=== PATIENT | male | born 2000 | race Caucasian/White ===

== ENCOUNTER 2024-06-10 08:41 | Day surgery (SDC) | payer MEDICAID, SELFPAY ==
[2024-06-10] VITALS (8 sets, daily range): BP systolic 102–128; BP diastolic 60–86; PULSE 60–73; RESP 16; TEMP 36.6–36.8; O2SAT 95–100; BMI 19.6
[2024-06-10] MEDS: CEFAZOLIN 2 GM in 0.9 % SODIUM CHLORIDE Mini-bag 100 ML IVPB (08:52)
--- NOTE | 2024-06-10 09:10 | W.PM.H&PU ---
History & Physical Update History & Physical Update H&P Reviewed and patient assessed: No changes noted
[2024-06-10] MEDS: SODIUM CHLORIDE 0.9 % (FLUSH) 10 ML SYRINGE IVF (09:57)
[2024-06-10] MEDS: MIDAZOLAM HCL 1 MG/ML inj IVP (09:57)
[2024-06-10] MEDS: fentaNYL 100 MCG/2 ML inj IVP (09:57)
--- NOTE | 2024-06-10 09:59 | SUR.PREOP ---
TIME?OUT:?0956 PT/Sophia Smith RN/Dr. Valentino MDA?VERIFICATION?OF?SURGICAL?SITE right hand,?PROCEDURE,?AND?CONSENT OBTAINED?PRIOR?TO?INVASIVE?PROCEDURE.
--- NOTE | 2024-06-10 10:40 | CRLHL7_ITS ---
For Patients: As a result of the Cures Act, medical imaging exams and procedure reports are released immediately into your electronic medical record. You may view this report before your referring provider. If you have questions, please contact your health care provider. Indication: Intra op right hand Technique: Three fluoroscopic images of the right hand. Fluoroscopic time of 58.5 seconds. IMPRESSION: Fluoroscopic guidance for fixation across the fracture involving the 3rd metacarpal. Dictated by Gian Blevins MD @ 06/10/2024 12:12:46 PM (Electronically Signed)
--- NOTE | 2024-06-10 10:51 | W.PM.NB ---
Nerve Block Nerve Block Time Seen by Provider: 10:00 Date Seen: 06/10/24 Type of block requested by surgeon for post-operative analgesia: axillary Side: right Time out performed: Yes Verification of patient name: Yes Verification of date of : Yes Site marking: site marked Name of person performing procedure: Valentino Continuous monitoring Was continuous monitoring of O2 sat, B/P, fitting room maintenance mechanic, recorded every 15 minutes?: Yes Procedure Checklist: sterile prep, needles and gloves Ultrasound guided. Images saved: Yes Medications given in 5ml increments after negative aspiration: Marcaine %: 0.5 mL: 25 Needle gauge: 22 Patient tolerated procedure well: Yes Additional comments: Needle noted adjacent to nerve Block Charges Block Charge (with Pro Fee): Brachial Plexus Use of Ultrasound Machine for Block: Yes- US Guidance/pain block
--- NOTE | 2024-06-10 10:52 | W.ANESCHARGE ---
Anesthesia Charges Start Date/Time Anesthesia Start Date: 06/10/24 Anesthesia Start Time: 10:14 Stop Date/Time Anesthesia Stop Date: 06/10/24 Anesthesia Stop Time: 11:36
--- NOTE | 2024-06-10 11:33 | P.ORPRC_ITS ---
Procedure Note Date of procedure: 06/10/24 Procedure: PREOPERATIVE DIAGNOSES: 1. Right 3rd metacarpal shaft fracture, closed, acute, with displacement, shortening, and mild malrotation. POSTOPERATIVE DIAGNOSES: 1. Right 3rd metacarpal shaft fracture, closed, acute, with displacement, shortening, and mild malrotation. NAME OF OPERATION: 1. Right 3rd metacarpal open reduction internal fixation 2. 03588 - intraoperative fluoroscopy up to 1 hour. SURGEON: Jcaob Munroe MD DERMATOLOGIST MANAGING PARTNER: Coleman Talbert PA-C ANESTHESIA: Axillary block + MAC IMPLANTS: Acumed INnate 3.6 mm fully-threaded metacarpal screw (x1) TOURNIQUET: None. INDICATIONS: The patient is a pleasant, 23-year-old male who sustained a right 3rd metacarpal fracture recently. They were evaluated at a medical facility. X-rays revealed a metacarpal fracture that was shortened and displaced. Given the instability and significant displacement, it was felt that surgery for ORIF would be prudent. FINDINGS: Right closed, displaced, shortened 3rd metacarpal fracture. PROCEDURE: Following a thorough discussion of risks, benefits, and alternatives, consent was obtained and the operative extremity was marked. The patient was brought to the operating room and placed supine on the operating table. Induc tion of anesthesia was achieved. Appropriate time out was performed identifying proper patient, site and procedure. 1 g IV Ancef was administered within 1 hour of incision preoperatively. The right upper extremity was prepped and draped in the appropriate sterile fashion using ChloraPrep. The fracture alignment was assessed with fluoroscopy. Once it was noted the fracture could be reduced, the appropriate guide pin was drilled retrograde from the metacarpal head. The pin start was in the dorsal 1/3 of the metacarpal head. Once the pin starting position and final resting position was confirmed to be appropriate with fluoroscopy, the screw length was measured, the skin stab completed, metacarpal drilled, and screw placed with excellent security and fit within the metacarpal, stabilizing the fracture. At this stage, the wound was thoroughly irrigated with normal saline. Closure performed skin glue. Soft splint/dressing was applied, and the patient woken from anesthesia and transferred the PACU in stable condition. PLAN: 1. Elevate operative extremity. 2. Ice, acetominphen or ibuprofen PRN. 3. Oxycodone for pain as needed. 4. Follow up with PA visit in 7-10 days for dressing removal, wound check, and no further bracing. Gentle range of motion, gripping, pinching as tolerated based on pain. Then follow-up at the 3.5-4 week jefferson from surgery with me with repeat x-rays right hand-three views.
--- NOTE | 2024-06-10 11:41 | W.ANESCHARGE ---
Anesthesia Charges Start Date/Time Anesthesia Start Date: 06/10/24 Anesthesia Start Time: 10:14 Stop Date/Time Anesthesia Stop Date: 06/10/24 Anesthesia Stop Time: 11:36
== END 2024-06-10 12:40 | disposition home or self-care (01) ==
PROVIDERS: PCP Family Medicine; Visit Provider Orthopaedic Surgery Sports Medicine
PROC: (CPT 26615; principal; 2024-06-10 11:15)
DX: S62.322A Displaced fracture of shaft of third metacarpal bone, right hand, initial encounter for closed fracture (principal); G89.18 Other acute postprocedural pain
CPT/HCPCS: 26615; 01830; 64415; 73130; 76000; 76942; A4580; C1713; J0665; J0690; J2250; J2405; J2704; J3010; J3490